=== PATIENT | male | born 1950 | race Native Hawaiian/Other Pacific Islander ===

== ENCOUNTER 2020-06-09 11:56 | Emergency (ER) | payer BC ==
[~2020-06-09] VITALS: Ht 177.8 cm; Wt 79.4 kg
[2020-06-09 11:56] VITALS: TEMP 96.8
[2020-06-09] MEDS ORDERED: CETI10TA PO (12:10)
[2020-06-09] MEDS ORDERED: CLOP75TA2 PO (12:11)
[2020-06-09] MEDS ORDERED: VITAMIN D32000 UNI1 PO (12:12)
[2020-06-09] MEDS ORDERED: CRESTOR20 MG PO (12:12)
[2020-06-09] MEDS ORDERED: ASPIRIN 81 LOW81 MG PO (12:13)
[2020-06-09] MEDS ORDERED: CO Q 10100 MG PO (12:13)
[2020-06-09 12:34] LABS: PLATELET COUNT 218 K/uL (142-355)
[2020-06-09 12:38] LABS: POTASSIUM 4.1 mmol/L (3.6-5.2)
[2020-06-09 12:54] LABS: PARTIAL THROMBOPLASTIN TIME 21.3 SECONDS (24.5-33.6)
[2020-06-09 14:28] VITALS: BP 132/81
== END 2020-06-09 14:28 | disposition home or self-care (01) ==
LOC: ED 11:56
PROVIDERS: Family Medicine
DX: J32.8 Other chronic sinusitis (principal); R42 Dizziness and giddiness; K29.60 Other gastritis without bleeding; R11.2 Nausea with vomiting, unspecified
CPT/HCPCS: 36415; 80053; 81000; 82150; 83690; 85027; 85610; 85730; 96374; 96375; 99284; J2405